=== PATIENT | male | born 1990 | race African-American/Black ===

== ENCOUNTER 2021-08-17 12:33 | Emergency (ER) | payer SELFPAY ==
[~2021-08-17] VITALS: Ht 177.8 cm; Wt 81.6 kg
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
--- NOTE | 2021-08-17 13:03 | NUR ---
x-ray tech at the bedside
[2021-08-17 14:09] VITALS: BP 131/75
--- NOTE | 2021-08-17 14:09 | NUR ---
Patient discharged to home in stable condition. Written and verbal after care instructions given. Patient verbalizes understanding of instruction.
== END 2021-08-17 14:09 | disposition home or self-care (01) ==
LOC: ER 12:33
DX: S62.304A Unspecified fracture of fourth metacarpal bone, right hand, initial encounter for closed fracture (principal); W05.1XXA Fall from non-moving nonmotorized scooter, initial encounter; Y93.89 Activity, other specified; Y92.89 Other specified places as the place of occurrence of the external cause; Y99.8 Other external cause status
CPT/HCPCS: 73130-TC